=== PATIENT | female | born 1945 | race Caucasian/White ===

== ENCOUNTER 2017-01-23 19:31 | Inpatient (IN) | payer OTHER, MEDICAID ==
[~2017-01-23] VITALS: Ht 154.9 cm; Wt 48.5 kg
[2017-01-23 19:40] VITALS: BP_SYST 131
[2017-01-23] MEDS ORDERED: ASPI81TA2 PO (20:08)
[2017-01-23] MEDS ORDERED: LEVO100T PO (20:08)
[2017-01-23] MEDS ORDERED: ACID1CAP PO (20:28)
[2017-01-23] MEDS ORDERED: CALC200T PO (20:28)
[2017-01-23] MEDS ORDERED: PHEN50TA PO ×2 (20:28)
[2017-01-23] MEDS ORDERED: FOLI-43 PO (20:28)
[2017-01-23] MEDS ORDERED: SENN-153 PO (20:28)
[2017-01-23] MEDS ORDERED: SIMV40TA2 PO (20:28)
[2017-01-23 20:33] LABS: BASOPHILS # (AUTO) 0.1 K/uL (0.0-0.2); BASOPHILS % (AUTO) 0.5 % (0.0-2.0); EOSINOPHILS # (AUTO) 0.1 K/uL (0.0-0.4); EOSINOPHILS % (AUTO) 0.8 % (0.0-4.0); HEMATOCRIT 38.2 % (36-48); HEMOGLOBIN 12.1 g/dL (12.0-16.0); LYMPHOCYTES # (AUTO) 4.2 K/uL (1.0-5.5); LYMPHOCYTES % (AUTO) 25.1 % (20.5-51.5); MEAN CORPUSCULAR HEMOGLOBIN 25 pg (27-31); MEAN CORPUSCULAR HGB CONC 32 % (32-36); MEAN CORPUSCULAR VOLUME 78 fL (79.0-98.0); MONOCYTES % (AUTO) 6.2 % (1.7-9.3); NEUTROPHILS # (AUTO) 11.5 K/uL (1.8-7.7); NEUTROPHILS % (AUTO) 67.4 % (40.0-70.0); PLATELET COUNT (AUTO) 252 K/uL (130-430); RED BLOOD CELL COUNT(AUTO) 4.93 MIL/uL (4.2-6.2); WHITE BLOOD COUNT (AUTO) 16.9 K/uL (4.8-10.8)
[2017-01-23 20:49] LABS: ANION GAP 6 (5-15); CALCIUM 9.3 mg/dL (8.4-11.0); CHLORIDE 106 mmol/L (98-107); CREATININE 0.67 mg/dL (0.55-1.30); GLUCOSE 101 mg/dL (70-99); POTASSIUM 3.8 mmol/L (3.5-5.1); SODIUM SERUM 137 mmol/L (136-145); UREA NITROGEN, BLOOD 12 mg/dL (8-21)
[2017-01-23 20:50] LABS: PROTHROMBIN TIME 11.1 SECS (9.5-12.5)
[2017-01-23 20:54] LABS: ALANINE AMINOTRANSFERASE 15 U/L (12-78); ALBUMIN 2.8 g/dL (3.4-4.8); ASPARTATE AMINOTRANSFERASE 15 U/L (10-37); TOTAL BILIRUBIN 0.1 mg/dL (0.0-1.0); TOTAL PROTEIN, SERUM 7.3 g/dL (6.4-8.3)
[2017-01-23] MEDS ORDERED: NACL 0.9% 1,000 ML IV ONE (21:30)
[2017-01-23] MEDS ORDERED: cefTRIAXone 1 GM IVPB PREMIX 50 ML IV ONE (21:45)
[2017-01-23 21:54] LABS: BILIRUBIN,URINE NEGATIVE (NEGATIVE); BLOOD, URINE NEGATIVE (NEGATIVE); CLARITY/URINE SL CLOUDY (CLEAR); COLOR,URINE YELLOW (YELLOW); GLUCOSE,URINE NEGATIVE (NEGATIVE); KETONES,URINE NEGATIVE (NEGATIVE); LEUKOCYTE ESTERASE ,URINE 1+ (NEGATIVE); NITRITE, URINE NEGATIVE (NEGATIVE); PROTEIN URINE NEGATIVE (NEGATIVE); UROBILINOGEN,URINE 0.2 (0.2-1.0)
[2017-01-23 22:09] LABS: BACTERIA,URINE MANY /HPF (None Seen); RBC,URINE 0-3 /HPF (0-3); WBC,URINE 20-50 /HPF (0-3)
[2017-01-23 22:10] LABS: MUCUS,URINE None Seen /LPF (None Seen); URINE AMORPHOUS URATE 1+ /HPF (None Seen)
[2017-01-23] MEDS ORDERED: COMMUNICATION ORDER XX ONE (23:15)
[2017-01-24] VITALS (8 sets, daily range): BP systolic 131–157
[2017-01-24] MEDS: NACL 0.9% 1,000 ML IV SCH ×2 (00:08→14:48)
[2017-01-24 06:57] LABS: ANION GAP 3 (5-15); CHLORIDE 112 mmol/L (98-107); CREATININE 0.59 mg/dL (0.55-1.30); GLUCOSE 79 mg/dL (70-99); POTASSIUM 3.8 mmol/L (3.5-5.1); SODIUM SERUM 141 mmol/L (136-145); UREA NITROGEN, BLOOD 9 mg/dL (8-21)
[2017-01-24] MEDS: LEVOTHYROXINE SODIUM 0.1 MG TABLET PO SCH (07:00)
[2017-01-24 07:07] LABS: BASOPHILS % (AUTO) 0.4 % (0.0-2.0); EOSINOPHILS # (AUTO) 0.3 K/uL (0.0-0.4); HEMATOCRIT 39.4 % (36-48); HEMOGLOBIN 12.4 g/dL (12.0-16.0); MEAN CORPUSCULAR HEMOGLOBIN 25 pg (27-31); MEAN CORPUSCULAR HGB CONC 32 % (32-36); MEAN CORPUSCULAR VOLUME 78 fL (79.0-98.0); RED BLOOD CELL COUNT(AUTO) 5.03 MIL/uL (4.2-6.2); RED CELL DISTRIBUTION WIDTH 14.2 % (9.0-15.0); WHITE BLOOD COUNT (AUTO) 12.3 K/uL (4.8-10.8)
[2017-01-24 07:22] LABS: EOSINOPHILS % (AUTO) 2.5 % (0.0-4.0); LYMPHOCYTES # (AUTO) 4.1 K/uL (1.0-5.5); LYMPHOCYTES % (AUTO) 33.1 % (20.5-51.5); NEUTROPHILS # (AUTO) 6.8 K/uL (1.8-7.7)
[2017-01-24 08:57] LABS: PLATELET COUNT (AUTO) 224 K/uL (130-430)
[2017-01-24] MEDS: ASPIRIN 81 MG TAB.CHEW PO SCH ×2 (09:00→11:30)
[2017-01-24] MEDS: SENNOSIDES 8.6 MG TABLET PO SCH ×3 (09:00→22:07)
[2017-01-24] MEDS: PHENYTOIN 100 MG CAPSULE PO SCH ×3 (09:00→22:07)
[2017-01-24] MEDS: FOLIC ACID 1 MG TABLET PO SCH ×2 (09:00→11:30)
[2017-01-24] MEDS: CALCIUM CITRATE 200 MG TABLET PO SCH ×3 (09:00→22:07)
[2017-01-24] MEDS: LACTOBACILLUS RHAMNOSUS GG 1 CAP CAPSULE PO SCH ×3 (09:00→22:06)
[2017-01-24] MEDS ORDERED: PHENYTOIN 100 MG PO SCH ×2 (09:00)
[2017-01-24] MEDS ORDERED: MAGNESIUM SULFATE 50 ML IV PRN (10:15)
[2017-01-24] MEDS ORDERED: POTASSIUM CHLORIDE 10 MEQ TAB.PRT.SR PO PRN (10:15)
[2017-01-24] MEDS ORDERED: LORazepam 2 MG/ML VIAL IVP PRN (10:15)
[2017-01-24] MEDS ORDERED: ACETAMINOPHEN 325 MG TABLET PO PRN (10:15)
[2017-01-24] MEDS ORDERED: ZOLPIDEM TARTRATE 5 MG TABLET PO PRN (10:15)
[2017-01-24] MEDS ORDERED: ONDANSETRON HCL 4 MG/2 ML VIAL IVP PRN (10:15)
[2017-01-24] MEDS ORDERED: DOCUSATE SODIUM 100 MG CAPSULE PO PRN (10:15)
[2017-01-24] MEDS ORDERED: cefTRIAXone 1 GM VIAL IV SCH (21:00)
[2017-01-24] MEDS: levETIRAcetam 500 MG TABLET PO SCH (22:07)
[2017-01-24] MEDS: SIMVASTATIN 40 MG TABLET PO SCH (22:07)
[2017-01-24] MEDS: HEPARIN SODIUM,PORCINE 5000 UNITS/ML VIAL SUBCUT SCH (22:11)
[2017-01-24] MEDS ORDERED: cefTRIAXone 1 GM IVPB PREMIX 50 ML IV ONE (22:41)
[2017-01-25] VITALS (7 sets, daily range): BP systolic 118–166
[2017-01-25] MEDS: NACL 0.9% 1,000 ML IV SCH ×2 (04:03→17:47)
[2017-01-25] MEDS: LEVOTHYROXINE SODIUM 0.1 MG TABLET PO SCH (06:02)
[2017-01-25 08:02] LABS: HEMOGLOBIN 16.4 g/dL (12.0-16.0); MEAN CORPUSCULAR HEMOGLOBIN 24 pg (27-31); MEAN CORPUSCULAR HGB CONC 31 % (32-36); MEAN CORPUSCULAR VOLUME 78 fL (79.0-98.0); PLATELET COUNT (AUTO) 224 K/uL (130-430); RED BLOOD CELL COUNT(AUTO) 6.76 MIL/uL (4.2-6.2); RED CELL DISTRIBUTION WIDTH 14.2 % (9.0-15.0); WHITE BLOOD COUNT (AUTO) 12.2 K/uL (4.8-10.8)
[2017-01-25 08:12] LABS: ANION GAP 10 (5-15); CALCIUM 10.1 mg/dL (8.4-11.0); CHLORIDE 102 mmol/L (98-107); CREATININE 0.57 mg/dL (0.55-1.30); GLUCOSE 101 mg/dL (70-99); SODIUM SERUM 137 mmol/L (136-145); UREA NITROGEN, BLOOD 3 mg/dL (8-21)
[2017-01-25] MEDS: PHENYTOIN 100 MG CAPSULE PO SCH ×3 (08:30→21:08)
[2017-01-25] MEDS: ASPIRIN 81 MG TAB.CHEW PO SCH (08:30)
[2017-01-25] MEDS: LACTOBACILLUS RHAMNOSUS GG 1 CAP CAPSULE PO SCH ×2 (08:30→21:08)
[2017-01-25] MEDS: FOLIC ACID 1 MG TABLET PO SCH (08:30)
[2017-01-25] MEDS: SENNOSIDES 8.6 MG TABLET PO SCH ×2 (08:30→21:08)
[2017-01-25] MEDS: levETIRAcetam 500 MG TABLET PO SCH ×2 (08:30→21:08)
[2017-01-25] MEDS: CALCIUM CITRATE 200 MG TABLET PO SCH ×2 (08:30→21:08)
[2017-01-25] MEDS: HEPARIN SODIUM,PORCINE 5000 UNITS/ML VIAL SUBCUT SCH ×2 (08:34→21:10)
[2017-01-25 08:50] LABS: BASOPHILS % (MANUAL) 0 % (0-2); EOSINOPHILS % (MANUAL) 1 % (0-7); LYMPHOCYTES % (MANUAL) 33 % (20-46); MONOCYTES % (MANUAL) 6 % (0-11)
[2017-01-25] MEDS: cefTRIAXone 1 GM IVPB PREMIX 50 ML IV SCH (21:08)
[2017-01-25] MEDS: SIMVASTATIN 40 MG TABLET PO SCH (21:08)
[2017-01-25] MEDS: MORPHINE 2 MG/ML INJ. SYRINGE IVP PRN (21:09)
[2017-01-26] VITALS (7 sets, daily range): BP systolic 118–143
[2017-01-26] MEDS: LEVOTHYROXINE SODIUM 0.1 MG TABLET PO SCH (06:17)
[2017-01-26] MEDS: MORPHINE 2 MG/ML INJ. SYRINGE IVP PRN (06:20)
[2017-01-26 07:30] LABS: BASOPHILS # (AUTO) 0.1 K/uL (0.0-0.2); BASOPHILS % (AUTO) 1.1 % (0.0-2.0); EOSINOPHILS # (AUTO) 0.3 K/uL (0.0-0.4); EOSINOPHILS % (AUTO) 2.6 % (0.0-4.0); HEMATOCRIT 43.5 % (36-48); HEMOGLOBIN 13.6 g/dL (12.0-16.0); LYMPHOCYTES # (AUTO) 3.9 K/uL (1.0-5.5); LYMPHOCYTES % (AUTO) 34.1 % (20.5-51.5); MEAN CORPUSCULAR HEMOGLOBIN 24 pg (27-31); MEAN CORPUSCULAR HGB CONC 31 % (32-36); MEAN CORPUSCULAR VOLUME 78 fL (79.0-98.0); MONOCYTES # (AUTO) 0.8 K/uL (0.0-1.0); NEUTROPHILS # (AUTO) 6.3 K/uL (1.8-7.7); NEUTROPHILS % (AUTO) 55.2 % (40.0-70.0); PLATELET COUNT (AUTO) 233 K/uL (130-430); RED BLOOD CELL COUNT(AUTO) 5.59 MIL/uL (4.2-6.2); WHITE BLOOD COUNT (AUTO) 11.4 K/uL (4.8-10.8)
[2017-01-26 07:51] LABS: ANION GAP 9 (5-15); CALCIUM 9.1 mg/dL (8.4-11.0); CHLORIDE 105 mmol/L (98-107); GLUCOSE 98 mg/dL (70-99); POTASSIUM 3.5 mmol/L (3.5-5.1); SODIUM SERUM 139 mmol/L (136-145)
[2017-01-26 07:52] LABS: CREATININE 0.56 mg/dL (0.55-1.30); UREA NITROGEN, BLOOD 5 mg/dL (8-21)
[2017-01-26] MEDS: NACL 0.9% 1,000 ML IV SCH ×2 (09:17→22:36)
[2017-01-26] MEDS: levETIRAcetam 500 MG TABLET PO SCH ×2 (09:17→20:30)
[2017-01-26] MEDS: FOLIC ACID 1 MG TABLET PO SCH (09:17)
[2017-01-26] MEDS: CALCIUM CITRATE 200 MG TABLET PO SCH ×2 (09:17→20:30)
[2017-01-26] MEDS: PHENYTOIN 100 MG CAPSULE PO SCH ×3 (09:17→20:30)
[2017-01-26] MEDS: SENNOSIDES 8.6 MG TABLET PO SCH ×2 (09:18→20:30)
[2017-01-26] MEDS: LACTOBACILLUS RHAMNOSUS GG 1 CAP CAPSULE PO SCH ×2 (09:18→20:30)
[2017-01-26] MEDS: HEPARIN SODIUM,PORCINE 5000 UNITS/ML VIAL SUBCUT SCH ×2 (09:18→20:29)
[2017-01-26] MEDS: ASPIRIN 81 MG TAB.CHEW PO SCH (09:18)
[2017-01-26] MEDS: SIMVASTATIN 40 MG TABLET PO SCH (20:30)
[2017-01-26] MEDS: cefTRIAXone 1 GM IVPB PREMIX 50 ML IV SCH (20:31)
[2017-01-27 03:42] VITALS: BP_SYST 112
[2017-01-27] MEDS: LEVOTHYROXINE SODIUM 0.1 MG TABLET PO SCH (06:18)
[2017-01-27 06:54] LABS: BASOPHILS # (AUTO) 0.2 K/uL (0.0-0.2); BASOPHILS % (AUTO) 1.9 % (0.0-2.0); EOSINOPHILS # (AUTO) 0.2 K/uL (0.0-0.4); HEMATOCRIT 42.5 % (36-48); HEMOGLOBIN 13.2 g/dL (12.0-16.0); LYMPHOCYTES % (AUTO) 44.6 % (20.5-51.5); MEAN CORPUSCULAR HEMOGLOBIN 24 pg (27-31); MEAN CORPUSCULAR HGB CONC 31 % (32-36); MEAN CORPUSCULAR VOLUME 78 fL (79.0-98.0); MONOCYTES # (AUTO) 0.5 K/uL (0.0-1.0); MONOCYTES % (AUTO) 5.9 % (1.7-9.3); NEUTROPHILS # (AUTO) 4.1 K/uL (1.8-7.7); NEUTROPHILS % (AUTO) 45.6 % (40.0-70.0); RED BLOOD CELL COUNT(AUTO) 5.46 MIL/uL (4.2-6.2)
[2017-01-27 07:35] LABS: ANION GAP 9 (5-15); CALCIUM 8.9 mg/dL (8.4-11.0); CHLORIDE 107 mmol/L (98-107); GLUCOSE 88 mg/dL (70-99); POTASSIUM 3.4 mmol/L (3.5-5.1); SODIUM SERUM 139 mmol/L (136-145); UREA NITROGEN, BLOOD 5 mg/dL (8-21)
[2017-01-27 08:00] VITALS: BP_SYST 131; BP_SYST 134
[2017-01-27 08:30] LABS: PLATELET COUNT (AUTO) 231 K/uL (130-430)
[2017-01-27] MEDS: SENNOSIDES 8.6 MG TABLET PO SCH (09:55)
[2017-01-27] MEDS: CALCIUM CITRATE 200 MG TABLET PO SCH (09:55)
[2017-01-27] MEDS: LACTOBACILLUS RHAMNOSUS GG 1 CAP CAPSULE PO SCH (09:56)
[2017-01-27] MEDS: PHENYTOIN 100 MG CAPSULE PO SCH (09:56)
[2017-01-27] MEDS: ASPIRIN 81 MG TAB.CHEW PO SCH (09:56)
[2017-01-27] MEDS: levETIRAcetam 500 MG TABLET PO SCH (09:56)
[2017-01-27] MEDS: FOLIC ACID 1 MG TABLET PO SCH (09:56)
[2017-01-27] MEDS: HEPARIN SODIUM,PORCINE 5000 UNITS/ML VIAL SUBCUT SCH (09:59)
[2017-01-27 13:41] VITALS: BP_SYST 134
[2017-01-27 14:37] VITALS: BP_SYST 120
== END 2017-01-27 14:10 | disposition hospice, inpatient (51) | DRG 871 ==
LOC: SED 19:31 → SMU 23:06
PROVIDERS: ADMIT General Practice; ATTEND General Practice
DX: A41.9 Sepsis, unspecified organism (principal); G93.41 Metabolic encephalopathy; N39.0 Urinary tract infection, site not specified; R13.10 Dysphagia, unspecified; G20 Parkinson's disease; F02.80 Dementia in other diseases classified elsewhere, unspecified severity, without behavioral disturbance, psychotic disturbance, mood disturbance, and anxiety; F17.210 Nicotine dependence, cigarettes, uncomplicated; M24.541 Contracture, right hand; M24.542 Contracture, left hand; E03.9 Hypothyroidism, unspecified; I10 Essential (primary) hypertension; G30.0 Alzheimer's disease with early onset; G40.909 Epilepsy, unspecified, not intractable, without status epilepticus; E78.5 Hyperlipidemia, unspecified; Z85.3 Personal history of malignant neoplasm of breast; Z79.82 Long term (current) use of aspirin; Z82.0 Family history of epilepsy and other diseases of the nervous system; Z79.899 Other long term (current) drug therapy
CPT/HCPCS: 36415; 70450-TC; 71010; 74000-TC; 80048; 80053; 80185-TC; 81000-TC; 83605; 83735-TC; 84484; 85007; 85025; 85027; 85610-TC; 85730-TC; 87040-TC; 87081; 87086; 92610-GN; 93005; 96365; 99285; J0696; J1644; J2270; J7030